=== PATIENT | male | born 1990 | race Caucasian/White ===

== ENCOUNTER 2017-09-14 11:17 | Emergency (ER) | payer MEDICAID ==
[~2017-09-14] VITALS: Ht 182.9 cm; Wt 136.1 kg
[2017-09-14] MEDS ORDERED: SODIUM CHLORIDE 0.9% 1,000 ML IVB ONE (12:07)
[2017-09-14] MEDS ORDERED: KETOROLAC TROMETH 30 MG/ML 1ML VIAL IV ONE (12:15)
[2017-09-14 12:37] LABS: Urine Bacteria NONE SEEN /hpf (None Seen); Urine Blood TRACE /uL (Negative); Urine Mucus FEW (None Seen); Urine Specific Gravity 1.017 (1.001-1.035); Urine WBC 1 /hpf (0 - 3)
[2017-09-14 13:12] LABS: Basophils # (auto) 0.1 uL; Basophils % (auto) 0.8 % (0.0-2.0); Eosinophils # (auto) 0.3 uL; Eosinophils % (auto) 3.5 % (0.0-7.0); Hematocrit 44.4 % (41.0-53.0); Hemoglobin 14.8 g/dL (13.5-17.5); Lymphocytes # (auto) 2.1 uL; Lymphocytes % (auto) 23.9 % (10.0-50.0); Mean Corpuscular Hemoglobin 29.4 pg (28.0-32.0); Mean Corpuscular Hgb Conc. 33.4 g/dL (32.0-36.0); Mean Corpuscular Volume 88.1 fL (80.0-100.0); Monocytes # (auto) 0.5 uL; Monocytes % (auto) 5.5 % (0.0-12.0); Neutrophils # (auto) 5.9 uL; Neutrophils % (auto) 66.3 % (37.0-80.0); Nucleated Red Blood Cells % 0.1 %; Platelet Count (auto) 211 10^3/uL (140-450); Red Blood Cells 5.04 10^6/uL (4.5-5.90); Red Cell Distribution Width 14.1 % (11.8-14.3)
[2017-09-14 13:28] LABS: Albumin 3.5 g/dL (3.4-5.0); BUN/Creatinine Ratio 10.9; Calcium 8.7 mg/dL (8.5-10.1); Potassium 4.4 mmol/L (3.5-5.1)
[2017-09-14 13:31] LABS: Bilirubin, Total 0.3 mg/dL (0.2-1.0); Total Protein 7.5 g/dL (6.4-8.2)
[2017-09-14 14:16] VITALS: BP 131/79
== END 2017-09-14 14:42 | disposition home or self-care (01) ==
LOC: ER 11:17
DX: N20.0 Calculus of kidney (principal)
CPT/HCPCS: 36415; 74176; 80053; 81001; 85025; 94761; 96374; 99285; J1885; J7030

== ENCOUNTER → 2020-01-05 | Outpatient (CLI) | payer OTHER | END | disposition home or self-care (01) | LOC: LAB 10:53 | PROVIDERS: ATTEND Nurse Practitioner Family | DX: Z20.828 Contact with and (suspected) exposure to other viral communicable diseases (principal) ==

== ENCOUNTER 2020-03-09 15:31 | Emergency (ER) | payer OTHER ==
[~2020-03-09] VITALS: Ht 182.9 cm; Wt 144.7 kg
[2020-03-09 15:48] VITALS: BP 158/101
== END 2020-03-09 20:16 | disposition left against medical advice (07) ==
LOC: ER 15:31 → EEVIPCON 15:31 → ER 18:02
DX: S20.219A Contusion of unspecified front wall of thorax, initial encounter (principal); J98.11 Atelectasis; Z87.442 Personal history of urinary calculi; Y08.89XA Assault by other specified means, initial encounter; Y93.89 Activity, other specified; Y92.89 Other specified places as the place of occurrence of the external cause; Y99.8 Other external cause status
CPT/HCPCS: 71046

== ENCOUNTER 2022-07-07 08:37 | Emergency (ER) | payer MEDICAID, OTHER ==
[~2022-07-07] VITALS: Ht 182.9 cm; Wt 141.0 kg
[2022-07-07 09:42] VITALS: BP 161/91
[2022-07-07 11:38] LABS: Basophils # (auto) 0.1 10 ^3/uL (0-0.2); Basophils % (auto) 0.6 % (0.0-2.0); Eosinophils # (auto) 0.2 10 ^3/uL (0-0.8); Eosinophils % (auto) 2.4 % (0.0-7.0); Hematocrit 47.6 % (41.0-53.0); Hemoglobin 16.4 g/dL (13.5-17.5); Lymphocytes # (auto) 2.8 10 ^3/uL (0.4-5.4); Mean Corpuscular Hemoglobin 29.8 pg (28.0-32.0); Mean Corpuscular Hgb Conc. 34.6 g/dL (32.0-36.0); Mean Corpuscular Volume 86.1 fL (80.0-100.0); Monocytes # (auto) 0.4 10 ^3/uL (0-1.3); Neutrophils # (auto) 5.4 10 ^3/uL (1.6-8.6); Nucleated Red Blood Cells % 0.1 %; Red Blood Cells 5.52 10^6/uL (4.5-5.90); White Blood Cell 8.9 10^3/uL (4.4-10.8)
[2022-07-07 12:12] LABS: Albumin 3.7 g/dL (3.4-5.0); Calcium 9.5 mg/dL (8.5-10.1); Potassium 4.3 mmol/L (3.5-5.1)
[2022-07-07 12:15] LABS: BUN/Creatinine Ratio 12.3 (10.0-20.0); Bilirubin, Total 0.5 mg/dL (0.2-1.0); Total Protein 7.5 g/dL (6.4-8.2)
== END 2022-07-07 12:58 | disposition home or self-care (01) ==
LOC: ER 08:37
DX: H53.8 Other visual disturbances (principal); E11.9 Type 2 diabetes mellitus without complications; Z87.442 Personal history of urinary calculi
CPT/HCPCS: 36415; 70450; 80053; 82010; 82962; 85025

== ENCOUNTER 2022-12-25 05:50 | Emergency (ER) | payer MEDICAID ==
[~2022-12-25] VITALS: Ht 182.9 cm; Wt 136.0 kg
[2022-12-25] MEDS ORDERED: ONDANSETRON ODT 4 MG TAB PO ONE (06:45)
[2022-12-25 07:13] LABS: Basophils # (auto) 0.1 10 ^3/uL (0-0.2); Basophils % (auto) 0.8 % (0.0-2.0); Eosinophils # (auto) 0.2 10 ^3/uL (0-0.8); Eosinophils % (auto) 2.4 % (0.0-7.0); Hematocrit 45.6 % (41.0-53.0); Hemoglobin 15.6 g/dL (13.5-17.5); Lymphocytes % (auto) 23.8 % (10.0-50.0); Mean Corpuscular Hemoglobin 30.4 pg (28.0-32.0); Mean Corpuscular Hgb Conc. 34.2 g/dL (32.0-36.0); Mean Corpuscular Volume 88.9 fL (80.0-100.0); Monocytes # (auto) 0.5 10 ^3/uL (0-1.3); Monocytes % (auto) 6.5 % (0.0-12.0); Neutrophils # (auto) 5.5 10 ^3/uL (1.6-8.6); Neutrophils % (auto) 66.5 % (37.0-80.0); Nucleated Red Blood Cells % 0.3 %; Red Blood Cells 5.13 10^6/uL (4.5-5.90); White Blood Cell 8.2 10^3/uL (4.4-10.8)
[2022-12-25 07:41] LABS: INR 1.04 (0.9-1.15); Prothrombin Time 10.9 sec (9.3-11.8)
[2022-12-25 07:50] LABS: Alanine Aminotransferase 34 U/L (7-40); Albumin 4.6 g/dL (3.2-4.8); Alkaline Phosphatase 96 U/L (46-116); Anion Gap 4 (5-15); Aspartate Aminotransferase 22 U/L (13-40); BUN/Creatinine Ratio 8.9 (10.0-20.0); Blood Urea Nitrogen 9 mg/dL (9-23); Calcium 9.4 mg/dL (8.7-10.4); Carbon Dioxide 27 mmol/L (20-30); Chloride 101 mmol/L (98-107); Glucose 238 mg/dL (74-106); Lipase 43 U/L (12-53); Potassium 4.1 mmol/L (3.5-5.1); Sodium 132 mmol/L (136-145)
[2022-12-25 07:51] LABS: Bilirubin, Total 0.9 mg/dL (0.2-1.0); Total Protein 7.5 g/dL (5.7-8.2)
[2022-12-25] MEDS ORDERED: MECL1TAB42 PO (08:23)
[2022-12-25] MEDS ORDERED: ZOFR4T PO (08:23)
[2022-12-25 08:30] VITALS: BP 151/94; PULSE 96; RESP 18; TEMP 97.4; O2SAT 97
== END 2022-12-25 08:37 | disposition home or self-care (01) ==
LOC: ER 05:50 → EEVIPCON 05:50 → ER 08:34
DX: R42 Dizziness and giddiness (principal); E11.9 Type 2 diabetes mellitus without complications; F41.9 Anxiety disorder, unspecified; F32.9 Major depressive disorder, single episode, unspecified; Z87.442 Personal history of urinary calculi; Z79.01 Long term (current) use of anticoagulants
CPT/HCPCS: 36415; 70450; 80053; 82962; 83690; 85025; 85610; 93005; 99284; Q0162

== ENCOUNTER 2024-08-06 00:21 | Inpatient (IN) | payer MEDICAID ==
[~2024-08-06] VITALS: Ht 160 cm; Wt 140.0 kg
[~2024-08-06 00:21] MED LIST: MECL1TAB42 PO; ZOFR4T PO
--- NOTE | 2024-08-06 02:04 | ED.PDOC ---
GI ASSESSMENT HPI Comments 33-year-old male who came to ER for abdominal pain. Patient states he woke up at 12 midnight due to sudden-onset abdominal pain. Abdominal pain initially located of the right lower quadrant, sharp, intermittent, radiating suprapubic area. Denies any nausea, vomiting or changes in bowel habits. Denies any urinary symptoms. Chief Complaint: Abdominal Pain Time Seen by MD: 02:03 Primary Care Provider: TALA Reviewed Notes: Nurses Notes Allergies: Uncoded Allergies: METAL (Adverse Reaction, Mild, RASH, 08/06/24) HAVING RASH DUE TO GET CONTACT WITH METAL OBJECTS Home Meds Active Scripts Pantoprazole Sodium Sesquihydr (Protonix) 40 Mg Tab, 40 MG PO DAILY for 30 Days, #30 TAB 0 Refills Prov:KATIE QUEVEDO MD 08/06/24 Lactulose (Constulose) 10 Gm/15 Ml Halley, 10 GM PO BID for 7 Days, #236 ML 0 Ref ills Prov:KATIE QUEVEDO MD 08/06/24 Docusate Sodium (Colace) 100 Mg Cap, 1 CAP PO BID, #30 CAP Prov:KATIE QUEVEDO MD 08/06/24 Discontinued Reported Medications Semaglutide (Ozempic) 2 Mg/3 Ml Inj, 2 MG SC QWEEKLY, INJ 08/06/24 Information Source: Patient Mode of Arrival: Ambulatory Timing: Hours Duration: Since onset Prehospital treatment: None Quality: Sharp Vomitus: None Stool: Normal Severity: Moderate Recent: None Recent Hx of: None Pain Location: RLQ, Suprapubic Associated sign and symptoms: Abdominal Pain Review of Systems REVIEW OF SYSTEMS: No fever, no chills, or fatigue HEENT: No sore throat, no earache, no congestion, no neck pain. Cardiac: No chest pain. No palpitations. Lungs: No shortness of breath, no cough. GI: No nausea, no vomiting, no diarrhea, no constipation, (+) abdominal pain : No dysuria, frequency, or urgency. No hematuria. Musculoskeletal: No joint pain , no joint swelling, no extremity edema. Skin: No rash, no itching. Neuro: No headache, no dizziness, no weakness Vital Signs Vital Signs Date Time Temp Pulse Resp B/P (MAP) Pulse Ox O2 Delivery O2 Flow Rate FiO2 08/06/24 05:00 97.7 88 15 156/90 (112) 96 97.7 08/06/24 05:00 Room Air* 0 21 Physical Exam General: Awake, alert and oriented. No acute distress. Skin: Skin in warm, dry and intact. Appropriate color for ethnicity. Nailbeds pink with no cyanosis. HEENT: The head is normocephalic and atraumatic. Conjunctivae are clear without exudates or hemorrhage. Sclera is non-icteric. EOM are intact. No signs of nystagmus. Eyelids are normal in appearance without swelling or lesions. Oral mucosa is pink and moist Neck: The neck is supple with normal range of motion. No JVD. Cardiac: Heart rate and rhythm are normal. No murmurs, gallops, or rubs are auscultated. Respiratory: No signs of respiratory distress. Lung sounds are clear in all lob es bilaterally without rales, rhonchi, or wheezes. Abdominal: Abdomen is soft, non-tender without distention. Bowel sounds are present and normoactive in all four quadrants. Extremities: Upper and lower extremities are atraumatic in appearance without d eformity or edema. Neurological: The patient is awake, alert and oriented to person, place, and time with normal speech. Speech is clear. There is no facial asymmetry. Psychiatric: Appropriate mood and affect. Good judgement and insight. No visual or auditory hallucinations. Past Medical History PAST MEDICAL HISTORY: Anxiety, Depression, DM, Kidney Stones Surgical History: Denies all surgeries Family History Family History: Reviewed,noncontributory to illness, Family hx of DM Family History (Other): Family hx of intercranial hypertension Social History Smoker: Non-Smoker Alcohol: Rarely Drugs: Denies Drug Use Lives In: Home Was a procedure done? Was a procedure done?: No GI differential Dx Differential Diagnosis: Appendicitis, Diverticular disease, Gastritis/PUD, Gastroenteritis, Pancreatitis, UTI, Urolithiasis, Other (Sepsis) X-Ray, Labs, Meds, VS Vital Signs Date Time Temp Pulse Resp B/P (MAP) Pulse Ox O2 Delivery O2 Flow Rate FiO2 08/06/24 05:00 97.7 88 15 156/90 (112) 96 97.7 08/06/24 05:00 90 15 96 Room Air* 0 21 08/06/24 01:30 98.1 99 14 145/94 (111) 99 98.1 Lab Test 08/06/24 05:31 08/06/24 04:02 08/06/24 01:40 08/06/24 01:39 Range/Units Lactic Acid Level 2.0 2.5 *H 0.4-2.0 mmol/L White Blood Count 13.2 H 4.4-10.8 10^3/uL Red Blood Count 5.07 4.5-5.90 10^6/uL Hemoglobin 15.2 13.5-17.5 g/dL Hematocrit 44.3 41.0-53.0 % Mean Corpuscular Volume 87.4 80.0-100.0 fL Mean Corpuscular Hemoglobin 29.9 28.0-32.0 pg Mean Corpuscular Hemoglobin Concent 34.3 32.0-36.0 g/dL Red Cell Distribution Width 13.7 11.8-14.3 % Platelet Count 209 140-450 10^3/uL Mean Platelet Volume 11.5 H 6.9-10.8 fL Neutrophils (%) (Auto) 76.4 37.0-80.0 % Lymphocytes (%) (Auto) 17.7 10.0-50.0 % Monocytes (%) (Auto) 3.9 0.0-12.0 % Eosinophils (%) (Auto) 1.6 0.0-7.0 % Basophils (%) (Auto) 0.4 0.0-2.0 % Neutrophils # (Auto) 10.1 H 1.6-8.6 10 ^3/uL Lymphocytes # (Auto) 2.3 0.4-5.4 10 ^3/uL Monocytes # (Auto) 0.5 0-1.3 10 ^3/uL Eosinophils # (Auto) 0.2 0-0.8 10 ^3/uL Basophils # (Auto) 0 0-0.2 10 ^3/uL Nucleated Red Blood Cells 0.1 % Sodium Level 138 136-145 mmol/L Potassium Level 4.8 3.5-5.1 mmol/L Chloride Level 102 98-107 mmol/L Carbon Dioxide Level 28 20-31 mmol/L Anion Gap 8 5-15 Blood Urea Nitrogen 9 9-23 mg/dL Creatinine 0.85 0.700-1.30 mg/dL Glomerular Filtration Rate Calc 119 >90 mL/min BUN/Creatinine Ratio 10.6 10.0-20.0 Serum Glucose 210 H 74-106 mg/dL Hemoglobin A1c 6.5 H <5.7 % A1C Calcium Level 9.8 8.7-10.4 mg/dL Total Bilirubin 0.7 0.2-1.0 mg/dL Aspartate Amino Transferase (AST) 11 L 13-40 U/L Alanine Aminotransferase (ALT) 24 7-40 U/L Alkaline Phosphatase 72 46-116 U/L Total Protein 7.6 5.7-8.2 g/dL Albumin 4.8 3.2-4.8 g/dL Lipase 55 H 12-53 U/L Urine Color Yellow Yellow Urine Clarity Clear Clear Urine pH 5.5 5.0-9.0 Urine Specific [place] 1.022 1.001-1.035 Urine Protein Trace H Negative Urine Ketones Negative Negative Urine Blood 2+ H Negative /uL Urine Nitrite Negative Negative Urine Bilirubin Negative Negative Urine Urobilinogen Normal Negative mg/dL Urine Leukocyte Esterase Negative Negative /uL Urine RBC 82 0 - 3 /hpf Urine Microscopic WBC 5 H 0-3 /HPF Urine Squamous Epithelial Cells Few <5 /hpf Urine Bacteria None seen None Seen /hpf Urine Mucus Few None Seen Urine Glucose Normal Normal mg/dL POC Glucose 234 H 70-106 mg/dl Current Medications Medications (Trade) Dose Ordered Sig/Sanjuana Route Start Time Stop Time Status Last Admin Ceftriaxone Sodium 50 ml @ 100 mls/hr ONCE ONCE IV 08/06/24 05:00 08/06/24 05:29 DC 08/06/24 05:28 Metronidazole 100 ml @ 100 mls/hr ONCE ONCE IV 08/06/24 05:00 08/06/24 05:59 DC 08/06/24 06:07 Sodium Chloride 1,000 ml @ 1,000 mls/hr Q1H ONCE IV 08/06/24 05:00 08/06/24 05:59 DC 08/06/24 05:48 Sodium Chloride 1,000 ml @ 130 mls/hr Q7H42M ONCE IV 08/06/24 05:00 08/06/24 12:41 DC 08/06/24 05:51 Time of 1ST Reevaluation: 01:59 Reevaluation 1ST: Unchanged Patient Education/Counseling: Diagnosis, Treatment Family Education/Counseling: No Family Present Departure 1 Departure Time of Disposition: 05:22 Impression: Primary Impression: Abdominal pain Additional Impressions: Nephrolithiasis Sepsis Disposition: ADMITTED INPATIENT Condition: Stable e-Prescriptions Pantoprazole Sodium Sesquihydr (Protonix) 40 Mg Tab 40 MG PO DAILY for 30 Days, #30 TAB 0 Refills Prov: KATIE QUEVEDO MD 08/06/24 Lactulose (Constulose) 10 Gm/15 Ml Halley 10 GM PO BID for 7 Days, #236 ML 0 Refills Prov: KATIE QUEVEDO MD 08/06/24 Docusate Sodium (Colace) 100 Mg Cap 1 CAP PO BID, #30 CAP Prov: KATIE QUEVEDO MD 08/06/24 Comments 33-year-old male who presents to the emergency department with abdominal pain. Workup diagnostic findings concerning for sepsis. Antibiotics, IV fluids initiated in the emergency department. Patient admitted to hospitalist service for further treatment, evaluation and monitoring. Extensive evaluation was performed in attempt to identify or rule out: (See differential diagnosis section) The following tests were ordered, and results were reviewed by me and discussed with patient: (See diagnostic results section) The following test were independently interpreted by me: N/A I reviewed and agreed with the following test results read by other providers: N/A I reviewed the following notes from the pt's past medical encounters: N/A Additional information was gathered from interviewing the following independent historians: Patient's mother at bedside Discussion of management or test interpretation with external physician/other qualified health medication care manager: N/A Addressed]an acute or chronic illness that poses a threat to life or bodily function: Sepsis Decision regarding hospitalization or escalation of hospital level of care: Risk and benefits of admission for further treatment of patient's condition was considered. Due to patient's current clinical condition, high risk of decline and poor outcome if discharged and need for further inpatient management and monitoring, patient will be admitted to the hospital. Discussed with patient. Critical Care Note Critical Care Time?: No Stability Stability form required: No Heart Score Heart Score: Heart Score Response (Comments) Value History N/A 0 EKG N/A 0 Age N/A 0 Risk Factors N/A 0 Troponin N/A 0 Total 0 I personally scribed for JERZY RICH MD ([email or web address]) on 08/06/24 at 02:04. Electronically submitted by Skinny Ayala ([facility]). JERZY RICH MD August 06, 2024 02:04
[2024-08-06 03:25] LABS: Urine Bacteria None Seen /hpf (None Seen)
[2024-08-06 03:50] LABS: Urine Blood 2+ /uL (Negative); Urine Clarity Clear (Clear); Urine Color Yellow (Yellow); Urine Mucus FEW (None Seen); Urine Protein, UAD TRACE (Negative); Urine Specific Gravity 1.022 (1.001-1.035); Urine Squamous Epithelial Cell FEW /hpf (<5); Urine Urobilinogen Normal (Negative); Urine WBC 5 /HPF (0-3); Urine pH 5.5 (5.0-9.0)
[2024-08-06 04:29] LABS: Basophils # (auto) 0 10 ^3/uL (0-0.2); Basophils % (auto) 0.4 % (0.0-2.0); Eosinophils # (auto) 0.2 10 ^3/uL (0-0.8); Eosinophils % (auto) 1.6 % (0.0-7.0); Hematocrit 44.3 % (41.0-53.0); Hemoglobin 15.2 g/dL (13.5-17.5); Lymphocytes # (auto) 2.3 10 ^3/uL (0.4-5.4); Lymphocytes % (auto) 17.7 % (10.0-50.0); Mean Corpuscular Hemoglobin 29.9 pg (28.0-32.0); Mean Corpuscular Hgb Conc. 34.3 g/dL (32.0-36.0); Mean Corpuscular Volume 87.4 fL (80.0-100.0); Monocytes # (auto) 0.5 10 ^3/uL (0-1.3); Monocytes % (auto) 3.9 % (0.0-12.0); Neutrophils # (auto) 10.1 10 ^3/uL (1.6-8.6); Neutrophils % (auto) 76.4 % (37.0-80.0); Nucleated Red Blood Cells % 0.1 %; Platelet Count (auto) 209 10^3/uL (140-450); Red Blood Cells 5.07 10^6/uL (4.5-5.90); Red Cell Distribution Width 13.7 % (11.8-14.3); White Blood Cell 13.2 10^3/uL (4.4-10.8)
[2024-08-06 04:44] LABS: Alanine Aminotransferase 24 U/L (7-40); Albumin 4.8 g/dL (3.2-4.8); Alkaline Phosphatase 72 U/L (46-116); Anion Gap 8 (5-15); Aspartate Aminotransferase 11 U/L (13-40); BUN/Creatinine Ratio 10.6 (10.0-20.0); Bilirubin, Total 0.7 mg/dL (0.2-1.0); Blood Urea Nitrogen 9 mg/dL (9-23); Calcium 9.8 mg/dL (8.7-10.4); Carbon Dioxide 28 mmol/L (20-31); Chloride 102 mmol/L (98-107); Glucose 210 mg/dL (74-106); Lactic Acid w/Reflex 2.5 mmol/L (0.4-2.0); Lipase 55 U/L (12-53); Potassium 4.8 mmol/L (3.5-5.1); Sodium 138 mmol/L (136-145); Total Protein 7.6 g/dL (5.7-8.2)
[2024-08-06 05:00] VITALS: PULSE 90; RESP 15; O2SAT 96
--- NOTE | 2024-08-06 05:09 | DVH ---
EXAM: CT Abdomen and Pelvis Without Intravenous Contrast CLINICAL INDICATION: Abdominal pain TECHNIQUE: Axial computed tomography images of the abdomen and pelvis without intravenous contrast. This CT exam was performed using one or more of the following dose reduction techniques: automated exposure control, adjustment of the mA and/or kV according to patient size, and/or use of iterative r econstruction technique. CONTRAST: COMPARISON: None FINDINGS: LUNG BASES: Unremarkable. No mass. No consolidation. MEDIASTINUM: Small esophageal hiatal hernia. ABDOMEN: LIVER: Hepatomegaly with fatty infiltration. GALLBLADDER AND BILE DUCTS: Unremarkable. No calcified stones. No ductal dilation. PANCREAS: Unremarkable. No ductal dilation. SPLEEN: Unremarkable. No splenomegaly. ADRENALS: Unremarkable. No mass. KIDNEYS AND URETERS: Bilateral renal pelvic calculi, largest measuring up to 3 mm without obstructi on. STOMACH AND BOWEL: Fecal retention in the colon consistent with constipation. No obstruction. No mucosal thickening. PELVIS: APPENDIX: No findings to suggest acute appendicitis. BLADDER: Unremarkable. No stones. REPRODUCTIVE: Unremarkable as visualized. ABDOMEN and PELVIS: INTRAPERITONEAL SPACE: Unremarkable. No free air. No significant fluid collection. BONES/JOINTS: No acute fracture. No dislocation. SOFT TISSUES: Umbilical hernia containing fat. VASCULATURE: Unremarkable. No abdominal aortic aneurysm. LYMPH NODES: Unremarkable. No enlarged lymph nodes. OTHER FINDINGS: . . . IMPRESSION: 1. Small esophageal hiatal hernia. 2. Hepatomegaly with fatty infiltration. 3. Bilateral renal pelvic calculi, largest measuring up to 3 mm without obstruction. 4. Fecal retention in the colon consistent with constipation. 5. Umbilical hernia containing fat.
[2024-08-06] MEDS: cefTRIAXone 1GM/50ML D5W 50 ML IV ONE (05:28)
[2024-08-06] MEDS ORDERED: DEXTROSE (50%) 50ML SYRG IV PRN (05:45)
[2024-08-06] MEDS ORDERED: NITROGLYCERIN 0.4 MG SL TAB SL PRN (05:45)
[2024-08-06] MEDS ORDERED: ONDANSETRON HCL 4 MG/2 ML VIAL IV PRN (05:45)
[2024-08-06] MEDS ORDERED: DOCUSATE SOD 100 MG CAP PO PRN (05:45)
[2024-08-06] MEDS ORDERED: HYDROcodone-ACET 5/325MG TAB PO PRN (05:45)
[2024-08-06] MEDS ORDERED: MORPHINE SULFATE INJ 2 MG/ml SYRG IV PRN (05:45)
[2024-08-06] MEDS ORDERED: ACETAMINOPHEN 325 MG TAB PO PRN (05:45)
[2024-08-06] MEDS: SODIUM CHLORIDE 0.9% 1,000 ML IV ONE ×2 (05:48→05:51)
[2024-08-06] MEDS: metroNIDAZOLE 500MG/100ML 100 ML IV ONE (06:07)
[2024-08-06] MEDS: SODIUM CHLORIDE 0.9% 1,000 ML IV SCH (06:08)
--- NOTE | 2024-08-06 06:08 | DVHHP2 ---
History of Present Illness Reason for Visit: Intractable abdominal pain History of Present Illness The patient is a 33-year-old male morbidly obese with past medical history of diabetes mellitus presented to [facility] ED with complaint of abdominal pain. Patient reports symptoms progressively get worse with right l ower quadrant intermittent abdominal pain, sharp in nature, radiating to the suprapubic area, rating 8/10 numeric scale, getting worse that prompted this visit. Patient was seen and evaluated in the ED, laboratory data shows WBC 13.2, platelets 209, sodium 139, potassium 4.8, BUN 9, creatinine 0.85, glucose 210, lactic acid 2.5, lipase 55, blood pressure 145/94, heart rate 98, temperature 98.1 F, O2 saturation 99% on room air. Abdomen/pelvis CT revealing small esophageal hiatal hernia, hepatomegaly with fatty infiltration, bilateral renal pelvis calculi, largest measuring up to 3 mm without obstruction, rectal retention in the colon consistent with constipation. Patient was started on IV antibiotic regimen Flagyl, given IV normal saline bolus, please see medication orders section in the computer. On my assessment, patient denied chest pain, no headache, no dizziness, no diaphoresis, no shortness of breaths, no nausea, no vomiting, no fever, no chills. Patient was admitted for further evaluation and medical management. Past Medical History Diabetes mellitus Past Surgical History Denies all surgeries Family History Reviewed, noncontributory to the management of this case. Past Social History The patient lives at home, denies smoking, alcohol or illicit drugs abuse. Review of Systems Constitutional: No: Fever, Chills, Sweats, Weakness, Malaise, Other Eyes: No: Pain, Vision change, Conjunctivae inflammation, Eyelid inflammation, Other, Redness ENT: No: Ear pain, Ear discharge, Nose pain, Nose discharge, Nose congestion, Mouth pain, Mouth swelling, Throat pain, Throat swelling, Other Respiratory: No: Cough, Dry, Shortness of breath, SOB with excertion, Wheezing, Hemoptysis, Pleuritic Pain, Sputum, Wheezing, Other Cardiovascular: No: Chest Pain, Palpitations, Orthopnea, Paroxysmal Noc. Dyspnea, Edema, Lt Headedness, Other Gastrointestinal: Abdominal Pain; No: Nausea, Vomiting, Diarrhea, Constipation, Melena, Hematochezia, Other Genitourinary: No Dysuria, No Frequency, No Incontinence, No Hematuria, No Retention, No Other Musculoskeletal: No: other, neck pain, shoulder pain, arm pain, back pain, hand pain, leg pain, foot pain Skin: No: Rash, Lesions, Jaundice, Bruising, Other Neurological: No: Weakness, Numbness, Incoordination, Change in speech, Confusion, Seizures, Other Allergies: Coded Allergies: NO KNOWN ALLERGIES (Unverified , 09/14/17) Exam Vital Signs Vital Signs Date Time Temp Pulse Resp B/P (MAP) Pulse Ox O2 Delivery O2 Flow Rate FiO2 08/06/24 01:30 98.1 99 14 145/94 (111) 99 98.1 General Appearance: Alert, Oriented X3, Cooperative, No acute distress HEENT: Atraumatic, PERRLA, EOMI, Mucous membr. moist/pink Respiratory: Clear to auscultation, Normal air movement Cardiovascular: Regular rate, Normal S1, Normal S2, No murmurs Abdominal: Normal bowel sounds, Soft, No tenderness, No hepatospenomegaly, No masses Extremities: No clubbing, No cyanosis, No edema, Normal pulses, No tenderness/swelling Skin: No rashes, No breakdown, No significant lesion Neuro: Normal gait, Normal speech, Strength at 5/5 X4 ext, Normal tone, Sensation intact, Cranial nerves 3-12 NL, Reflexes 2+ Psych/Mental Status: Mental status NL, Mood NL Labs/Xrays Labs Test 08/06/24 05:31 08/06/24 04:02 08/06/24 01:40 08/06/24 01:39 Range/Units White Blood Count 13.2 H 4.4-10.8 10^3/uL Red Blood Count 5.07 4.5-5.90 10^6/uL Hemoglobin 15.2 13.5-17.5 g/dL Hematocrit 44.3 41.0-53.0 % Mean Corpuscular Volume 87.4 80.0-100.0 fL Mean Corpuscular Hemoglobin 29.9 28.0-32.0 pg Mean Corpuscular Hemoglobin Concent 34.3 32.0-36.0 g/dL Red Cell Distribution Width 13.7 11.8-14.3 % Platelet Count 209 140-450 10^3/uL Mean Platelet Volume 11.5 H 6.9-10.8 fL Neutrophils (%) (Auto) 76.4 37.0-80.0 % Lymphocytes (%) (Auto) 17.7 10.0-50.0 % Monocytes (%) (Auto) 3.9 0.0-12.0 % Eosinophils (%) (Auto) 1.6 0.0-7.0 % Basophils (%) (Auto) 0.4 0.0-2.0 % Neutrophils # (Auto) 10.1 H 1.6-8.6 10 ^3/uL Lymphocytes # (Auto) 2.3 0.4-5.4 10 ^3/uL Monocytes # (Auto) 0.5 0-1.3 10 ^3/uL Eosinophils # (Auto) 0.2 0-0.8 10 ^3/uL Basophils # (Auto) 0 0-0.2 10 ^3/uL Nucleated Red Blood Cells 0.1 % Sodium Level 138 136-145 mmol/L Potassium Level 4.8 3.5-5.1 mmol/L Chloride Level 102 98-107 mmol/L Carbon Dioxide Level 28 20-31 mmol/L Anion Gap 8 5-15 Blood Urea Nitrogen 9 9-23 mg/dL Creatinine 0.85 0.700-1.30 mg/dL Glomerular Filtration Rate Calc 119 >90 mL/min BUN/Creatinine Ratio 10.6 10.0-20.0 Serum Glucose 210 H 74-106 mg/dL Calcium Level 9.8 8.7-10.4 mg/dL Total Bilirubin 0.7 0.2-1.0 mg/dL Aspartate Amino Transferase (AST) 11 L 13-40 U/L Alanine Aminotransferase (ALT) 24 7-40 U/L Alkaline Phosphatase 72 46-116 U/L Total Protein 7.6 5.7-8.2 g/dL Albumin 4.8 3.2-4.8 g/dL Lipase 55 H 12-53 U/L Urine Color Yellow Yellow Urine Clarity Clear Clear Urine pH 5.5 5.0-9.0 Urine Specific [place] 1.022 1.001-1.035 Urine Protein Trace H Negative Urine Ketones Negative Negative Urine Blood 2+ H Negative /uL Urine Nitrite Negative Negative Urine Bilirubin Negative Negative Urine Urobilinogen Normal Negative mg/dL Urine Leukocyte Esterase Negative Negative /uL Urine RBC 82 0 - 3 /hpf Urine Microscopic WBC 5 H 0-3 /HPF Urine Squamous Epithelial Cells Few <5 /hpf Urine Bacteria None seen None Seen /hpf Urine Mucus Few None Seen Urine Glucose Normal Normal mg/dL POC Glucose 234 H 70-106 mg/dl PATIENT: JULIETA HAWTHORNE ACCT: [id number] UNIT: [id number] : 1990 LOC: ER ROOM / BED: / AGE / SEX: 33 / M ADM STATUS: REG ER SERVICE [id number] ORDERING PHYSICIAN: JERZY RICH MD PROCEDURE(s): ABPL - CT AB PEL WO CON-NO ORAL OR IV REASON: Abdominal pain ORDER NUMBER(s): [id number], ACCESSION NUMBER(s): [id number] EXAM: CT Abdomen and Pelvis Without Intravenous Contrast CLINICAL INDICATION: Abdominal pain TECHNIQUE: Axial computed tomography images of the abdomen and pelvis without intravenous contrast. This CT exam was performed using one or more of the following dose reduction techniques: automated exposure control, adjustment of the mA and/or kV according to patient size, and/or use of iterative reconstruction technique. CONTRAST: COMPARISON: None FINDINGS: LUNG BASES: Unremarkable. No mass. No consolidation. MEDIASTINUM: Small esophageal hiatal hernia. ABDOMEN: LIVER: Hepatomegaly with fatty infiltration. GALLBLADDER AND BILE DUCTS: Unremarkable. No calcified stones. No ductal dilation. PANCREAS: Unremarkable. No ductal dilation. SPLEEN: Unremarkable. No splenomegaly. ADRENALS: Unremarkable. No mass. KIDNEYS AND URETERS: Bilateral renal pelvic calculi, largest measuring up to 3 mm without obstruction. STOMACH AND BOWEL: Fecal retention in the colon consistent with constipation. No obstruction. No mucosal thickening. PELVIS: APPENDIX: No findings to suggest acute appendicitis. BLADDER: Unremarkable. No stones. REPRODUCTIVE: Unremarkable as visualized. ABDOMEN and PELVIS: INTRAPERITONEAL SPACE: Unremarkable. No free air. No significant fluid collection. BONES/JOINTS: No acute fracture. No dislocation. SOFT TISSUES: Umbilical hernia containing fat. VASCULATURE: Unremarkable. No abdominal aortic aneurysm. LYMPH NODES: Unremarkable. No enlarged lymph nodes. OTHER FINDINGS: IMPRESSION: 1. Small esophageal hiatal hernia. 2. Hepatomegaly with fatty infiltration. 3. Bilateral renal pelvic calculi, largest measuring up to 3 mm without obstruction. 4. Fecal retention in the colon consistent with constipation. 5. Umbilical hernia containing fat. Assessment/Plan Assessment/Plan Intractable abdominal pain Constipation Nephrolithiasis Sepsis, unspecified organisms Diabetes mellitus with hyperglycemia Plan 1. Admit to telemetry unit 2. Breathing treatment 3. Pain control management 4. IV antibiotic management 5. Management of fluids and electrolytes 6. Consultation for hospitalist 7. Diagnostic test abdomen/pelvis CT 8. DVT prophylaxis-on SCDs 9. Repeat labs CBC, CMP in a.m. 10. Home medication reviewed and reconciled 11. Continue with current medical management 12. Treatment plan discussed with patient and RN. Patient verbalized understanding. Plan discussed with: Patient, Other (RN) My Orders Orders - JUAN ANGUIANO DNP Procedure Category Date Status Time Hemoglobin A1c LAB 08/06/24 Transmitted 05:44 Ceftriaxone Ivpb PHA 08/06/24 Transmitted Rocephin 09:00 Metronidazole Ivpb PHA 08/06/24 Transmitted Flagyl 06:00 Admit ADMIT 08/06/24 Transmitted 05:44 Allergies VIKI 08/06/24 Transmitted 05:44 Code Status CODE 08/06/24 Transmitted 05:44 0.9% Ns 1000 Ml PHA 08/06/24 Transmitted 05:45 Oxygen Per Hour RT 08/06/24 Transmitted 05:44 Hydrocodone-Acet PHA 08/06/24 Transmitted 5/325mg Tab ([place] 05:45 Ondansetron Hcl PHA 08/06/24 Transmitted (Zofran) 05:45 Docusate Sodium PHA 08/06/24 Transmitted Capsule (Colace 05:45 Complete Blood Count LAB 08/07/24 Verified 04:00 Comprehensive LAB 08/07/24 Verified Metabolic Panel 04:00 Condition: Serious VIKI 08/06/24 Transmitted 05:44 Acetaminophen Tablet PHA 08/06/24 Transmitted (Tylenol Tablet) 05:45 Clear Liq Diet DIET 08/06/24 Transmitted Breakfast Bedrest With Bathroom VIKI 08/06/24 Transmitted Privileg 05:44 Sequential VIKI 08/06/24 Transmitted Compression Device Nitroglycerin PHA 08/06/24 Transmitted Sublingual (Ntrostat 05:45 Morphine Sulfate PHA 08/06/24 Transmitted Injection 05:45 Notify Of Changes [facility] 08/06/24 Transmitted From Base 05:44 Medicare Biller For [facility] 08/06/24 Transmitted 24 Hours 05:44 Emergency Dysrhythmia [facility] 08/06/24 Transmitted Protocol 05:44 Rhythm Strips Once VIKI 08/06/24 Transmitted Every Shift 05:44 Oxygen By Nasal RT 08/06/24 Transmitted Cannula 05:44 Glucose Blood PHA 08/06/24 Transmitted (Accu-Chek Comfort 08:00 Moderate Insulin Ss PHA 08/06/24 Transmitted 08:00 Dextrose 50% Syringe PHA 08/06/24 Transmitted 05:45 Problem List: (1) Intractable abdominal pain (2) Constipation (3) Nephrolithiasis (4) Sepsis, unspecified organism (5) Diabetes mellitus with hyperglycemia Date of Service: August 06, 2024 Billing Provider: JUAN ANGUIANO DNP Common Visit Codes: [id number] INP/OBS CARE (HIGH) JUAN ANGUIANO DNP August 06, 2024 06:08
[2024-08-06 07:40] VITALS: PULSE 93; RESP 17; O2SAT 96
[2024-08-06] MEDS: ACCU-CHEK COMFORT CURVE STRIP VI SCH (08:27)
[2024-08-06] MEDS: InsuLIN REG 1unit/0.01ml Soln (100units/ml) SC SCH (08:36)
[2024-08-06] MEDS ORDERED: SEMA2INJ3 SC (09:22)
[2024-08-06 09:23] VITALS: BP 141/76; PULSE 83; RESP 18; TEMP 98.4; O2SAT 99
[2024-08-06 12:45] VITALS: BP 123/80; PULSE 85; RESP 18; TEMP 98; O2SAT 99
[2024-08-06] MEDS: metroNIDAZOLE 500MG/100ML 100 ML IV SCH (14:57)
[2024-08-06] MEDS ORDERED: LACT10SO60 PO (16:26)
[2024-08-06] MEDS ORDERED: DOCU-94 PO (16:26)
--- NOTE | 2024-08-06 16:37 | DVHDS2 ---
Discharge Summary Date of Admission August 06, 2024 at 05:44 Date of Discharge: August 06, 2024 Labs/Diagnostic Data: Laboratory Results Test 08/06/24 11:47 08/06/24 05:31 08/06/24 04:02 08/06/24 01:40 POC Glucose 139 mg/dl (70-106) Lactic Acid Level 2.0 mmol/L (0.4-2.0) White Blood Count 13.2 10^3/uL (4.4-10.8) Red Blood Count 5.07 10^6/uL (4.5-5.90) Hemoglobin 15.2 g/dL (13.5-17.5) Hematocrit 44.3 % (41.0-53.0) Mean Corpuscular Volume 87.4 fL (80.0-100.0) Mean Corpuscular Hemoglobin 29.9 pg (28.0-32.0) Mean Corpuscular Hemoglobin Concent 34.3 g/dL (32.0-36.0) Red Cell Distribution Width 13.7 % (11.8-14.3) Platelet Count 209 10^3/uL (140-450) Mean Platelet Volume 11.5 fL (6.9-10.8) Neutrophils (%) (Auto) 76.4 % (37.0-80.0) Lymphocytes (%) (Auto) 17.7 % (10.0-50.0) Monocytes (%) (Auto) 3.9 % (0.0-12.0) Eosinophils (%) (Auto) 1.6 % (0.0-7.0) Basophils (%) (Auto) 0.4 % (0.0-2.0) Neutrophils # (Auto) 10.1 10 ^3/uL (1.6-8.6) Lymphocytes # (Auto) 2.3 10 ^3/uL (0.4-5.4) Monocytes # (Auto) 0.5 10 ^3/uL (0-1.3) Eosinophils # (Auto) 0.2 10 ^3/uL (0-0.8) Basophils # (Auto) 0 10 ^3/uL (0-0.2) Nucleated Red Blood Cells 0.1 % Sodium Level 138 mmol/L (136-145) Potassium Level 4.8 mmol/L (3.5-5.1) Chloride Level 102 mmol/L (98-107) Carbon Dioxide Level 28 mmol/L (20-31) Anion Gap 8 (5-15) Blood Urea Nitrogen 9 mg/dL (9-23) Creatinine 0.85 mg/dL (0.700-1.30) Glomerular Filtration Rate Calc 119 mL/min (>90) BUN/Creatinine Ratio 10.6 (10.0-20.0) Serum Glucose 210 mg/dL (74-106) Hemoglobin A1c 6.5 % A1C (<5.7) Calcium Level 9.8 mg/dL (8.7-10.4) Total Bilirubin 0.7 mg/dL (0.2-1.0) Aspartate Amino Transferase (AST) 11 U/L (13-40) Alanine Aminotransferase (ALT) 24 U/L (7-40) Alkaline Phosphatase 72 U/L (46-116) Total Protein 7.6 g/dL (5.7-8.2) Albumin 4.8 g/dL (3.2-4.8) Lipase 55 U/L (12-53) Urine Color Yellow (Yellow) Urine Clarity Clear (Clear) Urine pH 5.5 (5.0-9.0) Urine Specific [place] 1.022 (1.001-1.035) Urine Protein Trace (Negative) Urine Ketones Negative (Negative) Urine Blood 2+ /uL (Negative) Urine Nitrite Negative (Negative) Urine Bilirubin Negative (Negative) Urine Urobilinogen Normal mg/dL (Negative) Urine Leukocyte Esterase Negative /uL (Negative) Urine RBC 82 /hpf (0 - 3) Urine Microscopic WBC 5 /HPF (0-3) Urine Squamous Epithelial Cells Few /hpf (<5) Urine Bacteria None seen /hpf (None Seen) Urine Mucus Few (None Seen) Urine Glucose Normal mg/dL (Normal) Other Laboratory Tests 08/06/24 04:02 Brief Hx & Hospital Course: diagnosis: gastroenteritis, infectious etiology likely sepsis due to above PUD possible acute abdomen ruled out acute worsening of chronic constipation, possible Iatrogenic, pain due to Ozempic Fecal retention Bilaterally no pelvic calculi without hydronephrosis Lactic acidosis, resolved Leukocytosis Neutrophilia Hepatomegaly with fatty infiltration, mesh possible Small esophageal hiatal hernia Prediabetes discharge plan: - augmentin 875mg 2x/day for 5 days - protonix 40 daily x 1 month - docusate 100 mg tablet twice daily for 1 month, lactulose 10 g /15 mL solution twice daily for 7 days. Review further need PCP - Maintain full liquid diet for at least 1 week, advanced thereafter. - Hold off Ozempic for 1 week and review continuation with PCP in 1-2 weeks. - Continue other home medications - return to ED if symptoms return, nausea and vomiting develops, febrile episodes stable. Condition at Discharge: Fair Final Diagnosis/Problems List gastroenteritis, infectious etiology likely sepsis due to above PUD possible acute abdomen ruled out acute worsening of chronic constipation, possible Iatrogenic, pain due to Ozempic Fecal retention Bilaterally no pelvic calculi without hydronephrosis Lactic acidosis, resolved Leukocytosis Neutrophilia Hepatomegaly with fatty infiltration, mesh possible Small esophageal hiatal hernia Prediabetes Discharge Disposition: Home Discharge Instruct/Medications Diet: See Comment Diet comment: FLD Activity: No Restrictions, As Tolerated Follow Up/Referral: below Medications: below Discharge Statement: "Patient was advised to return to the ER or call 911 if any headaches, dizziness, shortness of breath, chest pain, abdominal pain, bleeding, fevers, or worsening of medical condition. Patient was counseled about treatment plan, medications, possible side effects, patientverbalized understanding. All questions were answered to the best of my ability. This discharge took greater then 30 minutes in planning, reviewing documentation, counseling the patient, and discussing with other team members." Date of Service: August 06, 2024 Billing Provider: KATIE QUEVEDO MD Common Visit Codes: 81312-QNL/OBS DISCH DAY >30min KATIE QUEVEDO MD August 06, 2024 16:37
[2024-08-06] MEDS ORDERED: PANT40TA2 PO (16:38)
[2024-08-06 16:50] VITALS: BP 140/84; PULSE 85; RESP 17; TEMP 97.4; O2SAT 97
[2024-08-06 16:57] VITALS: TEMP 36.7
[2024-08-07] MEDS ORDERED: cefTRIAXone 1GM/50ML D5W 50 ML IV SCH (09:00)
== END 2024-08-06 17:30 | disposition home or self-care (01) | DRG 720 ==
LOC: ER 00:21 → OVERFLOW 05:44 → TELE-CENTR 09:20
PROVIDERS: ADMIT Student in an Organized Health Care Education/Training Program; ATTEND Student in an Organized Health Care Education/Training Program
DX: A41.9 Sepsis, unspecified organism (principal); E87.20 Acidosis, unspecified; D72.0 Genetic anomalies of leukocytes; A09 Infectious gastroenteritis and colitis, unspecified; Z68.43 Body mass index [BMI] 50.0-59.9, adult; K76.0 Fatty (change of) liver, not elsewhere classified; E11.65 Type 2 diabetes mellitus with hyperglycemia; K27.9 Peptic ulcer, site unspecified, unspecified as acute or chronic, without hemorrhage or perforation; E66.01 Morbid (severe) obesity due to excess calories; K44.9 Diaphragmatic hernia without obstruction or gangrene; K59.09 Other constipation; N20.0 Calculus of kidney; F41.9 Anxiety disorder, unspecified; Z82.49 Family history of ischemic heart disease and other diseases of the circulatory system; Z87.442 Personal history of urinary calculi; Z91.048 Other nonmedicinal substance allergy status
CPT/HCPCS: 36415; 74176; 80053; 81001; 82962; 83036; 83605; 83690; 85025; 87040; 96365; G0378; J1815; J3490